=== PATIENT | male | born 2000 | race Caucasian/White ===

== ENCOUNTER → 2024-08-27 | Outpatient (CLI) | payer BC ==
--- NOTE | 2024-08-27 15:03 | US ---
EXAMINATION TYPE: US thyroid st tissue head/neck DATE OF EXAM: 08/27/2024 COMPARISON: NONE CLINICAL INDICATION: Male, 24 years old with history of R590 LOCALIZED ENLARGED LYMPH NODES; Patient feels lump posterior right head/neck at hairline x 3 years. No pain. TECHNIQUE: Scanned palpable area of concern right posterior neck FINDINGS/impression: There is an ovoid hypoechoic structure within the right posterior neck a palpab le abnormality with central fatty hilum most consistent with a benign-appearing lymph node. Cortical thickness measures up to 3 mm. Overall size measures 1.5 x 1.3 x 0.5 cm. [facility], , 08/27/2024 3:00 PM
== END | disposition home or self-care (01) ==
LOC: RADUSWWP 14:47
PROVIDERS: ATTEND Family Medicine
DX: R59.0 Localized enlarged lymph nodes (principal)
CPT/HCPCS: 76536